=== PATIENT | female | born 1980 | race Caucasian/White ===

== ENCOUNTER → 2020-04-16 | Outpatient (CLI) | payer MEDICARE ==
[~2020-04-16] MED LIST: AURYXIA210 MG PO; BASAGLAR K100 UNIT/1 SQ; BUMETANIDE2 MG PO; CARDURA4 MG PO; CLOPIDOGREL75 MG PO; COLACE 100MG C100 MG PO; COZAAR100 MG PO; ELIQUIS 2.5 MG2.5 MG PO; ELIQUIS5 MG PO; ENDOCET 5-3251 EACH PO; GABAPENTIN300 MG PO; HYDRALAZINE HC100 MG PO; K-DUR TAB 20 M20 MEQ PO; LIPITOR40 MG PO; NEURONTIN100 MG PO; NORCO 5-325 TA1 EACH PO; NORCO 7.5-3251 EACH PO; NORVASC5 MG PO; NOVOLOG FL100 UNIT/1 SQ; PERCOCET 5-3251 EACH PO; PHENERGAN 12.12.5 M1 PO; PHENERGAN 12.12.5 MG PR; PROTONIX 40 MG40 M1 PO; RENVELA800 MG PO; TOPROL XL100 MG PO; XARELTO15 MG PO; ZYVOX600 MG PO
== END ==
LOC: WCC 13:30
PROC: 0KBV0ZZ Excision of Right Foot Muscle, Open Approach (ICD-10-PCS; principal; 2020-04-16)
DX: E10.621 Type 1 diabetes mellitus with foot ulcer (principal); L97.515 Non-pressure chronic ulcer of other part of right foot with muscle involvement without evidence of necrosis; I82.403 Acute embolism and thrombosis of unspecified deep veins of lower extremity, bilateral; E10.22 Type 1 diabetes mellitus with diabetic chronic kidney disease; R60.1 Generalized edema; N18.9 Chronic kidney disease, unspecified; Z99.2 Dependence on renal dialysis; Z79.4 Long term (current) use of insulin
CPT/HCPCS: 87070; 87205

== ENCOUNTER 2020-04-20 19:46 | Emergency (ER) | payer MEDICARE, MEDICAID, OTHER ==
[~2020-04-20 19:46] MED LIST changes: -COLACE 100MG C100 MG PO; -ELIQUIS 2.5 MG2.5 MG PO; -ELIQUIS5 MG PO; -GABAPENTIN300 MG PO; -NEURONTIN100 MG PO; -PERCOCET 5-3251 EACH PO; -ZYVOX600 MG PO
[2020-04-20 20:55] LABS: HEMOGLOBIN 9.7 gm/dl (12.3-15.3); WHITE BLOOD COUNT 8.8 K/UL (4.5-11.0)
[2020-04-20 21:01] LABS: RED BLOOD COUNT 3.18 M/UL (4.00-5.10)
[2020-04-21] MEDS ORDERED: ELIQUIS 2.5 MG2.5 MG PO (00:46)
[2020-04-21] MEDS ORDERED: PERCOCET 5-3251 EACH PO (00:46)
== END 2020-04-21 01:00 | disposition home or self-care (01) ==
LOC: ER1 19:46
PROVIDERS: Emergency Medicine
DX: Z53.8 Procedure and treatment not carried out for other reasons (principal)
CPT/HCPCS: 73700; 80053; 82550; 82553; 83605; 83735; 85025; 93926; 99284

== ENCOUNTER 2020-04-23 10:09 | Inpatient (IN) | payer MEDICARE ==
[~2020-04-23] VITALS: Ht 162.6 cm; Wt 77.1 kg
[~2020-04-23 10:09] MED LIST changes: -COLACE 100MG C100 MG PO; -ELIQUIS5 MG PO; -GABAPENTIN300 MG PO; -NEURONTIN100 MG PO; -ZYVOX600 MG PO
[2020-04-23 14:42] LABS: HEMOGLOBIN 9.8 gm/dl (12.3-15.3); RED BLOOD COUNT 3.21 M/UL (4.00-5.10)
[2020-04-23 14:43] LABS: WHITE BLOOD COUNT 11.4 K/UL (4.5-11.0)
[2020-04-23] MEDS ORDERED: NEURONTIN100 MG PO (17:00)
[2020-04-24 06:15] LABS: HEMOGLOBIN 8.5 gm/dl (12.3-15.3); RED BLOOD COUNT 2.79 M/UL (4.00-5.10); WHITE BLOOD COUNT 7.3 K/UL (4.5-11.0)
[2020-04-25 07:58] LABS: HEMOGLOBIN 8.4 gm/dl (12.3-15.3); RED BLOOD COUNT 2.78 M/UL (4.00-5.10); WHITE BLOOD COUNT 9.1 K/UL (4.5-11.0)
[2020-04-25] MEDS ORDERED: NORCO 7.5-3251 EACH PO (09:17)
[2020-04-25] MEDS ORDERED: GABAPENTIN300 MG PO (09:17)
[2020-04-25] MEDS ORDERED: COLACE 100MG C100 MG PO (09:17)
[2020-04-25] MEDS ORDERED: ELIQUIS5 MG PO (09:19)
[2020-04-25] MEDS ORDERED: ZYVOX600 MG PO (09:34)
== END 2020-04-25 20:15 | disposition home health service (06) | DRG 270 ==
LOC: CCU 10:09
PROVIDERS: Internal Medicine Nephrology; Physician Assistant Medical; Surgery; ADMIT Internal Medicine
PROC: 5A1D70Z Performance of Urinary Filtration, Intermittent, Less than 6 Hours Per Day (ICD-10-PCS; 2020-04-23)
PROC: 047L3Z1 Dilation of Left Femoral Artery using Drug-Coated Balloon, Percutaneous Approach (ICD-10-PCS; principal; 2020-04-23 18:32)
PROC: 047N3Z1 Dilation of Left Popliteal Artery using Drug-Coated Balloon, Percutaneous Approach (ICD-10-PCS; principal; 2020-04-23 18:32)
PROC: 04CN3ZZ Extirpation of Matter from Left Popliteal Artery, Percutaneous Approach (ICD-10-PCS; principal; 2020-04-23 18:32)
PROC: 04CL3ZZ Extirpation of Matter from Left Femoral Artery, Percutaneous Approach (ICD-10-PCS; principal; 2020-04-23 18:32)
PROC: B41DYZZ Fluoroscopy of Aorta and Bilateral Lower Extremity Arteries using Other Contrast (ICD-10-PCS; principal; 2020-04-23 18:32)
PROC: 5A1D70Z Performance of Urinary Filtration, Intermittent, Less than 6 Hours Per Day (ICD-10-PCS; 2020-04-25)
DX: I74.3 Embolism and thrombosis of arteries of the lower extremities (principal); N18.6 End stage renal disease; I12.0 Hypertensive chronic kidney disease with stage 5 chronic kidney disease or end stage renal disease; I72.8 Aneurysm of other specified arteries; E10.621 Type 1 diabetes mellitus with foot ulcer; E10.22 Type 1 diabetes mellitus with diabetic chronic kidney disease; Z87.891 Personal history of nicotine dependence; Z88.1 Allergy status to other antibiotic agents; Z99.2 Dependence on renal dialysis; D63.1 Anemia in chronic kidney disease; Z79.4 Long term (current) use of insulin; Z82.3 Family history of stroke; Z84.1 Family history of disorders of kidney and ureter; Z20.828 Contact with and (suspected) exposure to other viral communicable diseases; E10.21 Type 1 diabetes mellitus with diabetic nephropathy; Z79.899 Other long term (current) drug therapy; Z79.01 Long term (current) use of anticoagulants
CPT/HCPCS: 36415; 71045; 73700; 76000; 80048; 80053; 81001; 82550; 82553; 82962; 83036; 83605; 83735; 83880; 84443; 84703; 85007; 85018; 85025; 85027; 85610; 85730; 86850; 86900; 86901; 87040; 87086; 87635; 90935; 93005; 93926; 94760; 97162; 97530-GP-CQ; 99284; C1714; C1725; C1757; C1769; C1887; C2623; J1580; J1644; J2001; J2270; J2370; J2405; J2543; J2704; J2710; J2720; J2765; J3010; J7030; J7040; J7050; J7120; Q9962

== ENCOUNTER → 2020-04-23 | Outpatient (CLI) | payer MEDICARE, MEDICAID, OTHER ==
[~2020-04-23] MED LIST changes: +COLACE 100MG C100 MG PO; +ELIQUIS 2.5 MG2.5 MG PO; +ELIQUIS5 MG PO; +GABAPENTIN300 MG PO; +NEURONTIN100 MG PO; +PERCOCET 5-3251 EACH PO; +ZYVOX600 MG PO
== END ==
LOC: WCC 09:00
PROC: 0KBV0ZZ Excision of Right Foot Muscle, Open Approach (ICD-10-PCS; principal; 2020-04-23)
DX: E11.621 Type 2 diabetes mellitus with foot ulcer (principal); L97.515 Non-pressure chronic ulcer of other part of right foot with muscle involvement without evidence of necrosis; Z79.899 Other long term (current) drug therapy

== ENCOUNTER → 2020-04-30 | Outpatient (CLI) | payer MEDICARE, OTHER ==
[~2020-04-30] MED LIST changes: +COLACE 100MG C100 MG PO; +ELIQUIS5 MG PO; +GABAPENTIN300 MG PO; +NEURONTIN100 MG PO; +ZYVOX600 MG PO
== END ==
LOC: WCC 09:26
PROC: 0KBV0ZZ Excision of Right Foot Muscle, Open Approach (ICD-10-PCS; principal; 2020-04-30)
DX: E10.621 Type 1 diabetes mellitus with foot ulcer (principal); L97.515 Non-pressure chronic ulcer of other part of right foot with muscle involvement without evidence of necrosis; I82.403 Acute embolism and thrombosis of unspecified deep veins of lower extremity, bilateral; N18.9 Chronic kidney disease, unspecified; E10.22 Type 1 diabetes mellitus with diabetic chronic kidney disease; Z99.2 Dependence on renal dialysis; R60.1 Generalized edema; Z79.4 Long term (current) use of insulin; Z79.899 Other long term (current) drug therapy

== ENCOUNTER 2020-05-01 06:46 | Day surgery (SDC) | payer MEDICARE, OTHER ==
[~2020-05-01] VITALS: Ht 162.6 cm; Wt 77.1 kg
[2020-05-01 07:31] LABS: HEMOGLOBIN 8.6 gm/dl (12.3-15.3); RED BLOOD COUNT 2.99 M/UL (4.00-5.10); WHITE BLOOD COUNT 10.1 K/UL (4.5-11.0)
== END 2020-05-01 20:50 | disposition home or self-care (01) ==
LOC: OR 06:46 → M/S 15:36 → OR 20:50
PROVIDERS: Surgery
DX: E10.51 Type 1 diabetes mellitus with diabetic peripheral angiopathy without gangrene (principal); E10.621 Type 1 diabetes mellitus with foot ulcer; L97.516 Non-pressure chronic ulcer of other part of right foot with bone involvement without evidence of necrosis; I70.235 Atherosclerosis of native arteries of right leg with ulceration of other part of foot; E10.22 Type 1 diabetes mellitus with diabetic chronic kidney disease; N18.9 Chronic kidney disease, unspecified; Z99.2 Dependence on renal dialysis; Z79.01 Long term (current) use of anticoagulants; Z79.899 Other long term (current) drug therapy; Z79.52 Long term (current) use of systemic steroids; Z86.718 Personal history of other venous thrombosis and embolism
CPT/HCPCS: 36415; 76000; 80053; 82962; 85025; 85610; 85730; 86850; 86900; 86901; 87635; 93005; C1714; C1725; C1769; C1887; C2623; J0690; J1580; J1644; J2001; J2250; J2405; J2704; J2710; J2720; J3010; J7030; J7040; J7050; J7120; Q4133; Q9962

== ENCOUNTER → 2020-05-07 | Outpatient (CLI) | payer MEDICARE, OTHER | LOC: WCC 09:30 | PROC: 0JBQ0ZZ Excision of Right Foot Subcutaneous Tissue and Fascia, Open Approach (ICD-10-PCS; principal; 2020-05-07) | DX: E10.621 Type 1 diabetes mellitus with foot ulcer (principal); L97.516 Non-pressure chronic ulcer of other part of right foot with bone involvement without evidence of necrosis; I82.403 Acute embolism and thrombosis of unspecified deep veins of lower extremity, bilateral; E10.22 Type 1 diabetes mellitus with diabetic chronic kidney disease; N18.9 Chronic kidney disease, unspecified; R60.1 Generalized edema; Z99.2 Dependence on renal dialysis; Z79.4 Long term (current) use of insulin ==

== ENCOUNTER → 2020-05-14 | Outpatient (CLI) | payer MEDICARE, OTHER | LOC: WCC 09:16 | DX: E10.621 Type 1 diabetes mellitus with foot ulcer (principal); L97.516 Non-pressure chronic ulcer of other part of right foot with bone involvement without evidence of necrosis; I82.403 Acute embolism and thrombosis of unspecified deep veins of lower extremity, bilateral; E10.22 Type 1 diabetes mellitus with diabetic chronic kidney disease; N18.9 Chronic kidney disease, unspecified; E10.40 Type 1 diabetes mellitus with diabetic neuropathy, unspecified; Z99.2 Dependence on renal dialysis; Z79.4 Long term (current) use of insulin | CPT/HCPCS: G0463 ==

== ENCOUNTER 2020-05-20 02:41 | Emergency (ER) | payer MEDICARE, OTHER | END 2020-05-20 04:27 | disposition home or self-care (01) | LOC: ER1 02:41 | DX: T85.611A Breakdown (mechanical) of intraperitoneal dialysis catheter, initial encounter (principal); E10.9 Type 1 diabetes mellitus without complications; I10 Essential (primary) hypertension; Y82.8 Other medical devices associated with adverse incidents | CPT/HCPCS: 99283 ==

== ENCOUNTER → 2020-05-21 | Outpatient (CLI) | payer MEDICARE, OTHER | LOC: WCC 09:17 | DX: E10.621 Type 1 diabetes mellitus with foot ulcer (principal); L97.516 Non-pressure chronic ulcer of other part of right foot with bone involvement without evidence of necrosis; I82.403 Acute embolism and thrombosis of unspecified deep veins of lower extremity, bilateral; E11.22 Type 2 diabetes mellitus with diabetic chronic kidney disease; N18.9 Chronic kidney disease, unspecified; Z99.2 Dependence on renal dialysis; Z79.4 Long term (current) use of insulin; R60.1 Generalized edema; E10.40 Type 1 diabetes mellitus with diabetic neuropathy, unspecified | CPT/HCPCS: 97597 ==

== ENCOUNTER → 2020-05-28 | Outpatient (CLI) | payer MEDICARE, OTHER | LOC: WCC 09:13 | PROC: 0KBV0ZZ Excision of Right Foot Muscle, Open Approach (ICD-10-PCS; principal; 2020-05-28) | DX: E10.621 Type 1 diabetes mellitus with foot ulcer (principal); L97.514 Non-pressure chronic ulcer of other part of right foot with necrosis of bone; E10.52 Type 1 diabetes mellitus with diabetic peripheral angiopathy with gangrene; I96 Gangrene, not elsewhere classified; I12.0 Hypertensive chronic kidney disease with stage 5 chronic kidney disease or end stage renal disease; E10.22 Type 1 diabetes mellitus with diabetic chronic kidney disease; N18.6 End stage renal disease; E10.40 Type 1 diabetes mellitus with diabetic neuropathy, unspecified; I82.403 Acute embolism and thrombosis of unspecified deep veins of lower extremity, bilateral; E10.36 Type 1 diabetes mellitus with diabetic cataract; F41.8 Other specified anxiety disorders; H26.9 Unspecified cataract; Z99.2 Dependence on renal dialysis; Z79.4 Long term (current) use of insulin; Z79.891 Long term (current) use of opiate analgesic; Z79.02 Long term (current) use of antithrombotics/antiplatelets; Z79.2 Long term (current) use of antibiotics; Z79.899 Other long term (current) drug therapy ==

== ENCOUNTER → 2020-06-04 | Outpatient (CLI) | payer MEDICARE, OTHER | LOC: WCC 09:19 | PROC: 0KBV0ZZ Excision of Right Foot Muscle, Open Approach (ICD-10-PCS; principal; 2020-06-04) | DX: E10.621 Type 1 diabetes mellitus with foot ulcer (principal); L97.514 Non-pressure chronic ulcer of other part of right foot with necrosis of bone; E10.52 Type 1 diabetes mellitus with diabetic peripheral angiopathy with gangrene; E10.36 Type 1 diabetes mellitus with diabetic cataract; H26.9 Unspecified cataract; I12.0 Hypertensive chronic kidney disease with stage 5 chronic kidney disease or end stage renal disease; E10.22 Type 1 diabetes mellitus with diabetic chronic kidney disease; N18.6 End stage renal disease; F41.8 Other specified anxiety disorders; Z86.718 Personal history of other venous thrombosis and embolism; Z79.02 Long term (current) use of antithrombotics/antiplatelets; Z79.4 Long term (current) use of insulin; Z79.891 Long term (current) use of opiate analgesic; Z79.2 Long term (current) use of antibiotics; Z79.899 Other long term (current) drug therapy ==

== ENCOUNTER → 2020-06-18 | Outpatient (CLI) | payer MEDICARE, OTHER | LOC: WCC 09:15 | PROC: 0KBV0ZZ Excision of Right Foot Muscle, Open Approach (ICD-10-PCS; principal; 2020-06-18) | DX: E10.621 Type 1 diabetes mellitus with foot ulcer (principal); L97.513 Non-pressure chronic ulcer of other part of right foot with necrosis of muscle; L97.525 Non-pressure chronic ulcer of other part of left foot with muscle involvement without evidence of necrosis; E10.52 Type 1 diabetes mellitus with diabetic peripheral angiopathy with gangrene; I96 Gangrene, not elsewhere classified; E10.40 Type 1 diabetes mellitus with diabetic neuropathy, unspecified; E10.36 Type 1 diabetes mellitus with diabetic cataract; H26.9 Unspecified cataract; I82.403 Acute embolism and thrombosis of unspecified deep veins of lower extremity, bilateral; I12.0 Hypertensive chronic kidney disease with stage 5 chronic kidney disease or end stage renal disease; E10.22 Type 1 diabetes mellitus with diabetic chronic kidney disease; N18.6 End stage renal disease; F41.8 Other specified anxiety disorders; Z99.2 Dependence on renal dialysis; Z79.4 Long term (current) use of insulin; Z79.891 Long term (current) use of opiate analgesic; Z79.02 Long term (current) use of antithrombotics/antiplatelets; Z79.2 Long term (current) use of antibiotics; Z79.899 Other long term (current) drug therapy ==

== ENCOUNTER → 2020-06-29 | Outpatient (CLI) | payer MEDICARE, OTHER | LOC: WCC 09:19 | PROC: 0QBQ0ZZ Excision of Right Toe Phalanx, Open Approach (ICD-10-PCS; principal; 2020-06-29) | DX: E10.621 Type 1 diabetes mellitus with foot ulcer (principal); L97.514 Non-pressure chronic ulcer of other part of right foot with necrosis of bone; E10.52 Type 1 diabetes mellitus with diabetic peripheral angiopathy with gangrene; I96 Gangrene, not elsewhere classified; I82.403 Acute embolism and thrombosis of unspecified deep veins of lower extremity, bilateral; E10.40 Type 1 diabetes mellitus with diabetic neuropathy, unspecified; E10.36 Type 1 diabetes mellitus with diabetic cataract; H26.9 Unspecified cataract; I12.0 Hypertensive chronic kidney disease with stage 5 chronic kidney disease or end stage renal disease; E10.22 Type 1 diabetes mellitus with diabetic chronic kidney disease; N18.6 End stage renal disease; F41.8 Other specified anxiety disorders; Z79.2 Long term (current) use of antibiotics; Z79.4 Long term (current) use of insulin; Z79.02 Long term (current) use of antithrombotics/antiplatelets; Z79.899 Other long term (current) drug therapy; Z99.2 Dependence on renal dialysis ==

== ENCOUNTER → 2020-07-09 | Outpatient (CLI) | payer MEDICARE, OTHER | LOC: WCC 09:08 | PROC: 0KBV0ZZ Excision of Right Foot Muscle, Open Approach (ICD-10-PCS; principal; 2020-07-09) | DX: E10.621 Type 1 diabetes mellitus with foot ulcer (principal); L97.513 Non-pressure chronic ulcer of other part of right foot with necrosis of muscle; E10.52 Type 1 diabetes mellitus with diabetic peripheral angiopathy with gangrene; I96 Gangrene, not elsewhere classified; I12.0 Hypertensive chronic kidney disease with stage 5 chronic kidney disease or end stage renal disease; E10.22 Type 1 diabetes mellitus with diabetic chronic kidney disease; N18.6 End stage renal disease; F41.8 Other specified anxiety disorders; E10.40 Type 1 diabetes mellitus with diabetic neuropathy, unspecified; E10.36 Type 1 diabetes mellitus with diabetic cataract; H26.9 Unspecified cataract; Z79.02 Long term (current) use of antithrombotics/antiplatelets; Z79.4 Long term (current) use of insulin; Z79.891 Long term (current) use of opiate analgesic; Z79.2 Long term (current) use of antibiotics; Z79.899 Other long term (current) drug therapy; Z99.2 Dependence on renal dialysis; Z86.718 Personal history of other venous thrombosis and embolism ==

== ENCOUNTER → 2020-07-20 | Outpatient (CLI) | payer MEDICARE | LOC: WCC 09:25 | PROC: 0KBV0ZZ Excision of Right Foot Muscle, Open Approach (ICD-10-PCS; principal; 2020-07-20) | DX: E10.621 Type 1 diabetes mellitus with foot ulcer (principal); L97.513 Non-pressure chronic ulcer of other part of right foot with necrosis of muscle; E10.52 Type 1 diabetes mellitus with diabetic peripheral angiopathy with gangrene; I96 Gangrene, not elsewhere classified; E10.40 Type 1 diabetes mellitus with diabetic neuropathy, unspecified; I12.0 Hypertensive chronic kidney disease with stage 5 chronic kidney disease or end stage renal disease; E10.22 Type 1 diabetes mellitus with diabetic chronic kidney disease; N18.6 End stage renal disease; E10.36 Type 1 diabetes mellitus with diabetic cataract; H26.9 Unspecified cataract; I82.403 Acute embolism and thrombosis of unspecified deep veins of lower extremity, bilateral; Z79.4 Long term (current) use of insulin; Z79.2 Long term (current) use of antibiotics; Z79.899 Other long term (current) drug therapy; Z99.2 Dependence on renal dialysis ==

== ENCOUNTER → 2020-08-10 | Outpatient (CLI) | payer MEDICARE | LOC: WCC 09:30 | PROC: 0KBV0ZZ Excision of Right Foot Muscle, Open Approach (ICD-10-PCS; principal; 2020-08-10) | DX: E10.621 Type 1 diabetes mellitus with foot ulcer (principal); L97.513 Non-pressure chronic ulcer of other part of right foot with necrosis of muscle; L97.525 Non-pressure chronic ulcer of other part of left foot with muscle involvement without evidence of necrosis; E10.52 Type 1 diabetes mellitus with diabetic peripheral angiopathy with gangrene; E10.36 Type 1 diabetes mellitus with diabetic cataract; H26.9 Unspecified cataract; I96 Gangrene, not elsewhere classified; I82.403 Acute embolism and thrombosis of unspecified deep veins of lower extremity, bilateral; I12.0 Hypertensive chronic kidney disease with stage 5 chronic kidney disease or end stage renal disease; E10.22 Type 1 diabetes mellitus with diabetic chronic kidney disease; N18.6 End stage renal disease; E10.40 Type 1 diabetes mellitus with diabetic neuropathy, unspecified; Z99.2 Dependence on renal dialysis; Z79.4 Long term (current) use of insulin; Z79.891 Long term (current) use of opiate analgesic; Z79.02 Long term (current) use of antithrombotics/antiplatelets; Z79.2 Long term (current) use of antibiotics; Z79.899 Other long term (current) drug therapy ==

== ENCOUNTER → 2020-08-20 | Outpatient (CLI) | payer MEDICARE | LOC: WCC 09:30 | PROC: 0KBV0ZZ Excision of Right Foot Muscle, Open Approach (ICD-10-PCS; principal; 2020-08-20) | DX: E10.621 Type 1 diabetes mellitus with foot ulcer (principal); L97.514 Non-pressure chronic ulcer of other part of right foot with necrosis of bone; E10.52 Type 1 diabetes mellitus with diabetic peripheral angiopathy with gangrene; I96 Gangrene, not elsewhere classified; I82.403 Acute embolism and thrombosis of unspecified deep veins of lower extremity, bilateral; E10.40 Type 1 diabetes mellitus with diabetic neuropathy, unspecified; E10.36 Type 1 diabetes mellitus with diabetic cataract; H26.9 Unspecified cataract; I12.0 Hypertensive chronic kidney disease with stage 5 chronic kidney disease or end stage renal disease; E10.22 Type 1 diabetes mellitus with diabetic chronic kidney disease; N18.6 End stage renal disease; Z79.4 Long term (current) use of insulin; Z79.891 Long term (current) use of opiate analgesic; Z79.02 Long term (current) use of antithrombotics/antiplatelets; Z79.2 Long term (current) use of antibiotics; Z79.899 Other long term (current) drug therapy; Z99.2 Dependence on renal dialysis ==

== ENCOUNTER → 2020-08-31 | Outpatient (CLI) | payer MEDICARE | LOC: WCC 09:30 | PROC: 0JBQ0ZZ Excision of Right Foot Subcutaneous Tissue and Fascia, Open Approach (ICD-10-PCS; principal; 2020-08-31) | DX: E10.621 Type 1 diabetes mellitus with foot ulcer (principal); L97.512 Non-pressure chronic ulcer of other part of right foot with fat layer exposed; E10.52 Type 1 diabetes mellitus with diabetic peripheral angiopathy with gangrene; I96 Gangrene, not elsewhere classified; E10.36 Type 1 diabetes mellitus with diabetic cataract; H26.9 Unspecified cataract; E10.22 Type 1 diabetes mellitus with diabetic chronic kidney disease; N18.6 End stage renal disease; E10.40 Type 1 diabetes mellitus with diabetic neuropathy, unspecified; I82.403 Acute embolism and thrombosis of unspecified deep veins of lower extremity, bilateral; Z79.4 Long term (current) use of insulin; Z79.02 Long term (current) use of antithrombotics/antiplatelets; Z79.2 Long term (current) use of antibiotics; Z79.891 Long term (current) use of opiate analgesic; Z79.899 Other long term (current) drug therapy; Z99.2 Dependence on renal dialysis ==

== ENCOUNTER → 2020-09-11 | Outpatient (CLI) | payer MEDICARE | LOC: WCC 13:58 | PROC: 0JBQ0ZZ Excision of Right Foot Subcutaneous Tissue and Fascia, Open Approach (ICD-10-PCS; principal; 2020-09-11) | DX: E10.621 Type 1 diabetes mellitus with foot ulcer (principal); L97.512 Non-pressure chronic ulcer of other part of right foot with fat layer exposed; E10.52 Type 1 diabetes mellitus with diabetic peripheral angiopathy with gangrene; I96 Gangrene, not elsewhere classified; E10.40 Type 1 diabetes mellitus with diabetic neuropathy, unspecified; I12.0 Hypertensive chronic kidney disease with stage 5 chronic kidney disease or end stage renal disease; E10.22 Type 1 diabetes mellitus with diabetic chronic kidney disease; N18.6 End stage renal disease; E10.36 Type 1 diabetes mellitus with diabetic cataract; H26.9 Unspecified cataract; I82.403 Acute embolism and thrombosis of unspecified deep veins of lower extremity, bilateral; Z99.2 Dependence on renal dialysis; Z79.4 Long term (current) use of insulin; Z79.2 Long term (current) use of antibiotics; Z79.02 Long term (current) use of antithrombotics/antiplatelets; Z79.891 Long term (current) use of opiate analgesic; Z79.899 Other long term (current) drug therapy ==

== ENCOUNTER → 2020-09-19 | Outpatient (CLI) | payer MEDICARE | LOC: WCC 11:30 | DX: E10.621 Type 1 diabetes mellitus with foot ulcer (principal); L97.516 Non-pressure chronic ulcer of other part of right foot with bone involvement without evidence of necrosis; I82.403 Acute embolism and thrombosis of unspecified deep veins of lower extremity, bilateral; E10.22 Type 1 diabetes mellitus with diabetic chronic kidney disease; L97.525 Non-pressure chronic ulcer of other part of left foot with muscle involvement without evidence of necrosis; R60.1 Generalized edema; N18.9 Chronic kidney disease, unspecified; Z99.2 Dependence on renal dialysis; Z79.4 Long term (current) use of insulin | CPT/HCPCS: G0463 ==

== ENCOUNTER → 2020-09-25 | Outpatient (CLI) | payer MEDICARE | LOC: WCC 14:15 | PROC: 0JBQ0ZZ Excision of Right Foot Subcutaneous Tissue and Fascia, Open Approach (ICD-10-PCS; principal; 2020-09-25) | DX: E10.621 Type 1 diabetes mellitus with foot ulcer (principal); L97.512 Non-pressure chronic ulcer of other part of right foot with fat layer exposed; E10.52 Type 1 diabetes mellitus with diabetic peripheral angiopathy with gangrene; I96 Gangrene, not elsewhere classified; E10.40 Type 1 diabetes mellitus with diabetic neuropathy, unspecified; E10.36 Type 1 diabetes mellitus with diabetic cataract; H26.9 Unspecified cataract; I12.0 Hypertensive chronic kidney disease with stage 5 chronic kidney disease or end stage renal disease; E10.22 Type 1 diabetes mellitus with diabetic chronic kidney disease; N18.6 End stage renal disease; I82.403 Acute embolism and thrombosis of unspecified deep veins of lower extremity, bilateral; Z79.4 Long term (current) use of insulin; Z79.891 Long term (current) use of opiate analgesic; Z79.02 Long term (current) use of antithrombotics/antiplatelets; Z79.899 Other long term (current) drug therapy; Z99.2 Dependence on renal dialysis ==

== ENCOUNTER → 2020-10-02 | Outpatient (CLI) | payer MEDICARE | LOC: WCC 11:15 | DX: E10.621 Type 1 diabetes mellitus with foot ulcer (principal); L97.516 Non-pressure chronic ulcer of other part of right foot with bone involvement without evidence of necrosis; I82.403 Acute embolism and thrombosis of unspecified deep veins of lower extremity, bilateral; E10.22 Type 1 diabetes mellitus with diabetic chronic kidney disease; N18.9 Chronic kidney disease, unspecified; E10.40 Type 1 diabetes mellitus with diabetic neuropathy, unspecified; L97.525 Non-pressure chronic ulcer of other part of left foot with muscle involvement without evidence of necrosis; Z99.2 Dependence on renal dialysis; Z79.4 Long term (current) use of insulin | CPT/HCPCS: G0463 ==

== ENCOUNTER → 2020-10-19 | Outpatient (CLI) | payer MEDICARE | LOC: WCC 09:00 | DX: E10.621 Type 1 diabetes mellitus with foot ulcer (principal); L97.516 Non-pressure chronic ulcer of other part of right foot with bone involvement without evidence of necrosis; L97.525 Non-pressure chronic ulcer of other part of left foot with muscle involvement without evidence of necrosis; E10.22 Type 1 diabetes mellitus with diabetic chronic kidney disease; I82.403 Acute embolism and thrombosis of unspecified deep veins of lower extremity, bilateral; Z79.899 Other long term (current) drug therapy; Z79.4 Long term (current) use of insulin; Z99.2 Dependence on renal dialysis ==

== ENCOUNTER → 2020-10-25 | Outpatient (CLI) | payer MEDICARE | LOC: WCC 13:30 | PROC: 0JBQ0ZZ Excision of Right Foot Subcutaneous Tissue and Fascia, Open Approach (ICD-10-PCS; principal; 2020-10-25) | DX: E10.621 Type 1 diabetes mellitus with foot ulcer (principal); L97.512 Non-pressure chronic ulcer of other part of right foot with fat layer exposed; E10.52 Type 1 diabetes mellitus with diabetic peripheral angiopathy with gangrene; I96 Gangrene, not elsewhere classified; I12.0 Hypertensive chronic kidney disease with stage 5 chronic kidney disease or end stage renal disease; E10.22 Type 1 diabetes mellitus with diabetic chronic kidney disease; N18.6 End stage renal disease; E10.40 Type 1 diabetes mellitus with diabetic neuropathy, unspecified; I82.403 Acute embolism and thrombosis of unspecified deep veins of lower extremity, bilateral; E10.36 Type 1 diabetes mellitus with diabetic cataract; H26.9 Unspecified cataract; Z99.2 Dependence on renal dialysis; Z79.02 Long term (current) use of antithrombotics/antiplatelets; Z79.891 Long term (current) use of opiate analgesic; Z79.899 Other long term (current) drug therapy ==

== ENCOUNTER → 2020-11-08 | Outpatient (CLI) | payer MEDICARE | LOC: WCC 13:57 | PROC: 0JBQ0ZZ Excision of Right Foot Subcutaneous Tissue and Fascia, Open Approach (ICD-10-PCS; principal; 2020-11-08) | DX: E10.621 Type 1 diabetes mellitus with foot ulcer (principal); L97.512 Non-pressure chronic ulcer of other part of right foot with fat layer exposed; E10.52 Type 1 diabetes mellitus with diabetic peripheral angiopathy with gangrene; I96 Gangrene, not elsewhere classified; I82.403 Acute embolism and thrombosis of unspecified deep veins of lower extremity, bilateral; I12.0 Hypertensive chronic kidney disease with stage 5 chronic kidney disease or end stage renal disease; E10.22 Type 1 diabetes mellitus with diabetic chronic kidney disease; N18.6 End stage renal disease; E10.40 Type 1 diabetes mellitus with diabetic neuropathy, unspecified; E10.36 Type 1 diabetes mellitus with diabetic cataract; H26.9 Unspecified cataract; Z99.2 Dependence on renal dialysis; Z79.4 Long term (current) use of insulin; Z79.02 Long term (current) use of antithrombotics/antiplatelets; Z79.2 Long term (current) use of antibiotics; Z79.891 Long term (current) use of opiate analgesic; Z79.899 Other long term (current) drug therapy | CPT/HCPCS: 87070; 87077; 87186; 87205 ==

== ENCOUNTER → 2020-11-13 | Outpatient (CLI) | payer MEDICARE | LOC: RAD 13:18 | DX: E10.621 Type 1 diabetes mellitus with foot ulcer (principal); L97.516 Non-pressure chronic ulcer of other part of right foot with bone involvement without evidence of necrosis; E10.22 Type 1 diabetes mellitus with diabetic chronic kidney disease; N18.9 Chronic kidney disease, unspecified | CPT/HCPCS: 73630 ==

== ENCOUNTER → 2020-11-22 | Outpatient (CLI) | payer MEDICARE | LOC: WCC 13:27 | DX: E10.621 Type 1 diabetes mellitus with foot ulcer (principal); L97.516 Non-pressure chronic ulcer of other part of right foot with bone involvement without evidence of necrosis; I82.403 Acute embolism and thrombosis of unspecified deep veins of lower extremity, bilateral; E10.22 Type 1 diabetes mellitus with diabetic chronic kidney disease; N18.9 Chronic kidney disease, unspecified; E11.40 Type 2 diabetes mellitus with diabetic neuropathy, unspecified; L97.525 Non-pressure chronic ulcer of other part of left foot with muscle involvement without evidence of necrosis; R60.1 Generalized edema; Z99.2 Dependence on renal dialysis; Z79.4 Long term (current) use of insulin | CPT/HCPCS: G0463 ==

== ENCOUNTER 2021-03-27 09:44 | Inpatient (IN) | payer MEDICARE ==
[~2021-03-27] VITALS: Ht 160 cm; Wt 90.7 kg
[~2021-03-27 09:44] MED LIST changes: -AURYXIA210 MG PO; -BASAGLAR K100 UNIT/1 SQ; -NORVASC5 MG PO; -NOVOLOG FL100 UNIT/1 SQ; -TOPROL XL100 MG PO
[2021-03-27 11:57] LABS: HEMOGLOBIN 9.7 gm/dl (12.3-15.3); RED BLOOD COUNT 3.38 M/UL (4.00-5.10); WHITE BLOOD COUNT 11.5 K/UL (4.5-11.0)
[2021-03-27] MEDS ORDERED: METOLAZONE10 MG PO (13:56)
[2021-03-27] MEDS ORDERED: RENVELA800 MG PO (13:56)
[2021-03-27] MEDS ORDERED: HYDROCODON-ACE1 EAC2 PO (13:57)
[2021-03-27] MEDS ORDERED: PREGABALIN100 MG PO (13:57)
[2021-03-27] MEDS ORDERED: NORVASC10 MG PO (23:23)
[2021-03-27] MEDS ORDERED: BASAGLAR K100 UNIT/1 SQ (23:24)
[2021-03-27] MEDS ORDERED: NOVOLOG FL100 UNIT/1 INJ (23:25)
[2021-03-27] MEDS ORDERED: AURYXIA210 MG PO (23:31)
[2021-03-27] MEDS ORDERED: METOPROLOL TAR100 MG PO (23:32)
[2021-03-28 08:27] LABS: HEMOGLOBIN 8.3 gm/dl (12.3-15.3)
[2021-03-28 08:31] LABS: RED BLOOD COUNT 2.89 M/UL (4.00-5.10); WHITE BLOOD COUNT 8.5 K/UL (4.5-11.0)
[2021-03-29 07:27] LABS: HEMOGLOBIN 8.6 gm/dl (12.3-15.3); RED BLOOD COUNT 3.02 M/UL (4.00-5.10); WHITE BLOOD COUNT 8.5 K/UL (4.5-11.0)
--- NOTE | 2021-03-29 12:54 | NUR ---
REPORT GIVEN TO BHARAT WALTERS, PT LEFT AT THIS TIME VIA-TRANSPORT TO ROOM 4113, TELE ON
--- NOTE | 2021-03-29 16:00 | NUR ---
pt arrived to the floor, dsg change done per md order. she asked for it to be removed. states was burning. i redressed her foot with a dry dressing. she denies needs or c/o at this time.
[2021-03-30 06:00] LABS: HEMOGLOBIN 9.2 gm/dl (12.3-15.3); RED BLOOD COUNT 3.19 M/UL (4.00-5.10); WHITE BLOOD COUNT 8.1 K/UL (4.5-11.0)
--- NOTE | 2021-04-02 13:11 | NUR ---
PER OR STAFF AND PROVIDER DR DORADO PATIENT SURGERY HAS BEEN PUSHED BACK UNTIL TOMORROW 04/03/21. WILL INFORM PATIENT, ALLOW PATIENT TO EAT AND PUT IN ORDER FOR NPO AFTER MIDNIGHT TONIGHT 04/01/21. WILL CONTINUE TO MONITOR.
--- NOTE | 2021-04-04 07:31 | NUR ---
PATIENT NOTED TO HAVE A GLUCOSE READING OF 546 AMD A K OF 6.1. PROIOVDER MADE AWARE WITH NEW ORDERS GIVEN.
[2021-04-04 07:59] LABS: HEMOGLOBIN 8.6 gm/dl (12.3-15.3); RED BLOOD COUNT 3.04 M/UL (4.00-5.10); WHITE BLOOD COUNT 8.9 K/UL (4.5-11.0)
[2021-04-04 14:14] LABS: HEMATOCRIT 27.8 % (34.0-46.6)
[2021-04-05 07:18] LABS: HEMOGLOBIN 9.1 gm/dl (12.3-15.3); RED BLOOD COUNT 3.11 M/UL (4.00-5.10); WHITE BLOOD COUNT 8.4 K/UL (4.5-11.0)
--- NOTE | 2021-04-06 17:45 | NUR ---
NOTIFIED DR SHARMA OF BLOOD GLUCOSE READINGS. STATED WOULD MAKE CHANGES TO HER MEDICATIONS.
[2021-04-07 07:08] LABS: HEMOGLOBIN 9.2 gm/dl (12.3-15.3); RED BLOOD COUNT 3.19 M/UL (4.00-5.10); WHITE BLOOD COUNT 7.7 K/UL (4.5-11.0)
[2021-04-08 10:13] LABS: HEMOGLOBIN 8.8 gm/dl (12.3-15.3); RED BLOOD COUNT 3.06 M/UL (4.00-5.10); WHITE BLOOD COUNT 8.3 K/UL (4.5-11.0)
[2021-04-08] MEDS ORDERED: LANTUS INS100 UTS/M1 SQ (16:26)
[2021-04-08] MEDS ORDERED: VITAMIN B-121000 MC2 SL (16:26)
[2021-04-09 07:00] LABS: HEMOGLOBIN 8.5 gm/dl (12.3-15.3); RED BLOOD COUNT 2.99 M/UL (4.00-5.10)
[2021-04-09 08:13] LABS: WHITE BLOOD COUNT 11.3 K/UL (4.5-11.0)
[2021-04-09 14:14] LABS: HEMATOCRIT 26.9 % (34.0-46.6)
[2021-04-10 06:56] LABS: HEMOGLOBIN 7.9 gm/dl (12.3-15.3)
[2021-04-10 07:02] LABS: RED BLOOD COUNT 2.69 M/UL (4.00-5.10); WHITE BLOOD COUNT 7.4 K/UL (4.5-11.0)
[2021-04-10] MEDS ORDERED: BACTRIM DS TAB1 EACH PO (13:22)
[2021-04-10] MEDS ORDERED: PHENERGAN 12.12.5 M1 PO (13:22)
== END 2021-04-10 16:54 | disposition home or self-care (01) | DRG 622 ==
LOC: ER1 09:44 → CDU 13:27 → MED SURG 4 13:27 → CCU 20:11 → MED SURG 4 03-29 12:57
PROVIDERS: Emergency Medicine; Internal Medicine; Internal Medicine Hematology & Oncology; Physician Assistant; Physician Assistant Medical; Registered Nurse; ADMIT Internal Medicine
PROC: B24BZZZ Ultrasonography of Heart with Aorta (ICD-10-PCS; 2021-04-02)
PROC: 0JBQ0ZZ Excision of Right Foot Subcutaneous Tissue and Fascia, Open Approach (ICD-10-PCS; principal; 2021-04-03)
PROC: 0HRMXK3 Replacement of Right Foot Skin with Nonautologous Tissue Substitute, Full Thickness, External Approach (ICD-10-PCS; 2021-04-03)
PROC: 0J9R0ZZ Drainage of Left Foot Subcutaneous Tissue and Fascia, Open Approach (ICD-10-PCS; 2021-04-03)
PROC: 3E1M39Z Irrigation of Peritoneal Cavity using Dialysate, Percutaneous Approach (ICD-10-PCS; 2021-04-03)
PROC: 0H9NXZZ Drainage of Left Foot Skin, External Approach (ICD-10-PCS; 2021-04-08)
PROC: 3E00X29 Introduction of Other Anti-infective into Skin and Mucous Membranes, External Approach (ICD-10-PCS; 2021-04-08)
DX: E10.621 Type 1 diabetes mellitus with foot ulcer (principal); K66.1 Hemoperitoneum; I12.0 Hypertensive chronic kidney disease with stage 5 chronic kidney disease or end stage renal disease; Z20.822 Contact with and (suspected) exposure to COVID-19; L03.116 Cellulitis of left lower limb; L02.416 Cutaneous abscess of left lower limb; D62 Acute posthemorrhagic anemia; I31.3 Pericardial effusion (noninflammatory); N18.6 End stage renal disease; E10.22 Type 1 diabetes mellitus with diabetic chronic kidney disease; E10.649 Type 1 diabetes mellitus with hypoglycemia without coma; E87.5 Hyperkalemia; K21.9 Gastro-esophageal reflux disease without esophagitis; I07.1 Rheumatic tricuspid insufficiency; E66.9 Obesity, unspecified; E10.51 Type 1 diabetes mellitus with diabetic peripheral angiopathy without gangrene; D63.1 Anemia in chronic kidney disease; Z86.718 Personal history of other venous thrombosis and embolism; Z79.01 Long term (current) use of anticoagulants; Z99.2 Dependence on renal dialysis; Z79.4 Long term (current) use of insulin; Z98.891 History of uterine scar from previous surgery; Z83.3 Family history of diabetes mellitus; Z84.1 Family history of disorders of kidney and ureter; Z88.1 Allergy status to other antibiotic agents; Z68.36 Body mass index [BMI] 36.0-36.9, adult
CPT/HCPCS: ECHO; 36415; 73630; 73718; 80048; 80053; 81206; 81207; 81219; 81270; 82607; 82728; 82747; 82962; 83540; 83550; 83735; 83921; 85007; 85025; 85027; 85652; 86140; 87040; 87070; 87077; 87186; 87205; 90935; 90947; 93005; 93306; 93925; 94664; 94760; 96374; 97110; 97161; 97166; 99284; A6212; C1713; J0692; J1100; J1580; J2001; J2020; J2250; J2270; J2405; J2543; J2550; J2704; J2795; J3010; J7030; J7120; Q4081; Q4133; Q5105; U0002

== ENCOUNTER 2021-07-15 16:01 | Inpatient (IN) | payer MEDICARE, OTHER ==
[~2021-07-15] VITALS: Ht 162.6 cm; Wt 96.2 kg
[~2021-07-15 16:01] MED LIST changes: +AURYXIA210 MG PO; +BACTRIM DS TAB1 EACH PO; +BASAGLAR K100 UNIT/1 SQ; +LANTUS INS100 UTS/M1 SQ; +METOLAZONE10 MG PO; +METOPROLOL TAR100 MG PO; +NORVASC10 MG PO; +NOVOLOG FL100 UNIT/1 SQ; +PREGABALIN100 MG PO; +VITAMIN B-121000 MC2 SL
[2021-07-15 18:05] LABS: HEMOGLOBIN 10.6 gm/dl (12.3-15.3); RED BLOOD COUNT 3.49 M/UL (4.00-5.10)
[2021-07-15] MEDS ORDERED: CLOPIDOGREL75 MG PO (23:36)
[2021-07-15] MEDS ORDERED: ADULT LOW DOSE81 MG PO (23:37)
[2021-07-15] MEDS ORDERED: VIBRAMYCIN 100100 MG PO (23:37)
[2021-07-16 06:33] LABS: HEMOGLOBIN 9.1 gm/dl (12.3-15.3)
[2021-07-16 06:42] LABS: RED BLOOD COUNT 3.04 M/UL (4.00-5.10)
[2021-07-16] MEDS ORDERED: HYDROCODON-ACE1 EAC2 PO (13:57)
[2021-07-16] MEDS ORDERED: TYLENOL EXTRA500 MG PO (17:45)
[2021-07-17 09:24] LABS: HEMOGLOBIN 10.1 gm/dl (12.3-15.3)
[2021-07-17 09:26] LABS: RED BLOOD COUNT 3.36 M/UL (4.00-5.10); WHITE BLOOD COUNT 21.1 K/UL (4.5-11.0)
--- NOTE | 2021-07-17 17:38 | NUR ---
dsg change done by me and came in and changed dressing change orders, pt tolerated well.
--- NOTE | 2021-07-18 01:55 | NUR ---
APPROX 2325 CALLED [facility].
[2021-07-18 16:51] LABS: HEMOGLOBIN 9.4 gm/dl (12.3-15.3); RED BLOOD COUNT 3.1 M/UL (4.00-5.10); WHITE BLOOD COUNT 20.8 K/UL (4.5-11.0)
[2021-07-19 06:33] LABS: HEMOGLOBIN 9.6 gm/dl (12.3-15.3); RED BLOOD COUNT 3.2 M/UL (4.00-5.10); WHITE BLOOD COUNT 17.6 K/UL (4.5-11.0)
--- NOTE | 2021-07-19 07:25 | NUR ---
[facility] CALLED TO DR. HERNANDEZ NO NEW ORDERS GVEN AT THIS TIME.
--- NOTE | 2021-07-20 01:32 | NUR ---
2320 DR VILLEDA NOTIFIED PT LEFT WOUND DRESSING SATURATED WITH DARK RED BLOOD. SATURATED THROUGH ACEWRAPS, KURLEX, ON BED SHEETS. TAKEN RIGOBERTO WRAPS OFF, DID NOT TAKE KURLEX OFF. MD OK TO TAKE KURLEX OFF AND REWRAP DRESSING AND ELAVATE LEG. ALSO NOTIFIED MD OF PT HAVING BOLUS OF NS DUE TO LOW BP. ANOTHER RCV ORDERS FROM DR. MOORE FOR THAT. 2340 KURLEX IS REMOVED WITH HELP FROM INFORMATION TECHNOLOGY DATA ANALYST, POSTERIOR DRAIN AND INCISION IS ACTIVELY BLEEDING, LARGE BLOOD CLOTS IN KURLEX WRAP. VERY SATURATED. 2 OTHER INCISION ARE NOT BLEEDING AT THIS TIME, REWRAP WITH 2 KURLEX, 2 ACEWRAPS WITH PRESSURE APPLIED WHEN WRAPPING, ELEVATED WITH PILLOWS. PT TOLERATED WELL BUT IN PAIN. [address] VILLEDA OF ABOVE. MD STATES WILL COME AND EVALUATE PT RIGHT NOW IF NEEDED. NOTIFIED MD OF VITALS OF 2349 BP 119/72,HR 73, 02-100%. PT IS STILL RECEVING BOLUS AT THIS TIME. AGREED WITH MD WILL CONTINUE TO MONITOR PT AND IF BLEEDING CONTINUES THROUGH DRESSING AGAIN WILL CONTACT MD IMMEDIATLEY. ALSO MD STATES DONT HESITATE TO CALL AND HOLD HEPARIN AT THIS TIME. 0040 NO BLEEDING THROUGH DRESSING AT THIS TIME. PT RESTING IN BED AT THIS TIME WILL CONTINUE TO MONITOR PT.
[2021-07-20 05:47] LABS: RED BLOOD COUNT 2.97 M/UL (4.00-5.10); WHITE BLOOD COUNT 14.8 K/UL (4.5-11.0)
[2021-07-21 03:22] LABS: HEMOGLOBIN 9.2 gm/dl (12.3-15.3); RED BLOOD COUNT 3.08 M/UL (4.00-5.10); WHITE BLOOD COUNT 17.1 K/UL (4.5-11.0)
[2021-07-22 05:02] LABS: HEMOGLOBIN 8.5 gm/dl (12.3-15.3); RED BLOOD COUNT 2.85 M/UL (4.00-5.10); WHITE BLOOD COUNT 16.7 K/UL (4.5-11.0)
[2021-07-24 03:19] LABS: HEMOGLOBIN 7.9 gm/dl (12.3-15.3); RED BLOOD COUNT 2.68 M/UL (4.00-5.10); WHITE BLOOD COUNT 14.3 K/UL (4.5-11.0)
[2021-07-25 02:57] LABS: HEMOGLOBIN 7.7 gm/dl (12.3-15.3); RED BLOOD COUNT 2.66 M/UL (4.00-5.10); WHITE BLOOD COUNT 17.7 K/UL (4.5-11.0)
[2021-07-26 11:58] LABS: HEMOGLOBIN 8.4 gm/dl (12.3-15.3); RED BLOOD COUNT 2.87 M/UL (4.00-5.10); WHITE BLOOD COUNT 15.8 K/UL (4.5-11.0)
[2021-07-28 04:40] LABS: HEMOGLOBIN 8.2 gm/dl (12.3-15.3); RED BLOOD COUNT 2.81 M/UL (4.00-5.10); WHITE BLOOD COUNT 17.9 K/UL (4.5-11.0)
--- NOTE | 2021-07-29 11:42 | NUR ---
SPOKE WITH PT'S FAMILY ABOUT HER INABILITY TO SIGN CONSENT FOR PROCEDURE AT THIS TIME, VERBAL ON PHONE OBTAINED
--- NOTE | 2021-07-29 15:49 | NUR ---
PT PROCEDURE HAS BEEN POSTPONED FOR TOMORROW. NPO AFTER MIDNIGHT.
[2021-07-29 17:16] LABS: HEMOGLOBIN 9.1 gm/dl (12.3-15.3)
[2021-07-29 17:34] LABS: RED BLOOD COUNT 3.1 M/UL (4.00-5.10)
--- NOTE | 2021-07-30 00:30 | NUR ---
SPOKE WITH LABEL TACKER REGARDING PT'S CONFUSION. PT TRYING TO GET OUT OF BED CONSTANTLY WITHOUT ASSISTANCE. PT VERY CONFUSED. OBTAINED PERMISSION TO MOVE PT TO ROOM 4125 TO BE CLOSER TO RN STATION.
[2021-07-30 06:21] LABS: RED BLOOD COUNT 3.08 M/UL (4.00-5.10); WHITE BLOOD COUNT 24.3 K/UL (4.5-11.0)
[2021-07-31 08:29] LABS: HEMOGLOBIN 7.5 gm/dl (12.3-15.3)
[2021-07-31 08:31] LABS: RED BLOOD COUNT 2.57 M/UL (4.00-5.10); WHITE BLOOD COUNT 17.7 K/UL (4.5-11.0)
[2021-08-01 06:50] LABS: HEMOGLOBIN 8.3 gm/dl (12.3-15.3); RED BLOOD COUNT 2.84 M/UL (4.00-5.10); WHITE BLOOD COUNT 15.9 K/UL (4.5-11.0)
[2021-08-01] MEDS ORDERED: LOPRESSOR 25 MG25 MG PO (18:37)
[2021-08-01] MEDS ORDERED: LANTUS INS100 UTS/M1 SC (18:37)
== END 2021-08-02 02:00 | disposition home health service (06) | DRG 871 ==
LOC: ER1 16:01 → CDU 21:57 → MED SURG 4 21:57
PROVIDERS: Internal Medicine; Internal Medicine Infectious Disease; Internal Medicine Nephrology; Physician Assistant Medical; Surgery; ADMIT Internal Medicine
PROC: 3E03329 Introduction of Other Anti-infective into Peripheral Vein, Percutaneous Approach (ICD-10-PCS; 2021-07-15)
PROC: 3E1M39Z Irrigation of Peritoneal Cavity using Dialysate, Percutaneous Approach (ICD-10-PCS; 2021-07-16)
PROC: 5A1D70Z Performance of Urinary Filtration, Intermittent, Less than 6 Hours Per Day (ICD-10-PCS; 2021-07-18)
PROC: 0J9P0ZZ Drainage of Left Lower Leg Subcutaneous Tissue and Fascia, Open Approach (ICD-10-PCS; principal; 2021-07-19 16:20)
PROC: B24BZZZ Ultrasonography of Heart with Aorta (ICD-10-PCS; 2021-07-23)
PROC: 0J9P0ZZ Drainage of Left Lower Leg Subcutaneous Tissue and Fascia, Open Approach (ICD-10-PCS; 2021-07-30)
DX: A41.51 Sepsis due to Escherichia coli [E. coli] (principal); N18.6 End stage renal disease; G92.8 Other toxic encephalopathy; M72.6 Necrotizing fasciitis; Z20.822 Contact with and (suspected) exposure to COVID-19; I96 Gangrene, not elsewhere classified; I12.0 Hypertensive chronic kidney disease with stage 5 chronic kidney disease or end stage renal disease; L02.612 Cutaneous abscess of left foot; E87.2 Acidosis; E10.52 Type 1 diabetes mellitus with diabetic peripheral angiopathy with gangrene; L03.116 Cellulitis of left lower limb; E87.1 Hypo-osmolality and hyponatremia; L97.419 Non-pressure chronic ulcer of right heel and midfoot with unspecified severity; M86.672 Other chronic osteomyelitis, left ankle and foot; E10.40 Type 1 diabetes mellitus with diabetic neuropathy, unspecified; D63.1 Anemia in chronic kidney disease; E83.39 Other disorders of phosphorus metabolism; Z83.3 Family history of diabetes mellitus; E10.22 Type 1 diabetes mellitus with diabetic chronic kidney disease; B96.20 Unspecified Escherichia coli [E. coli] as the cause of diseases classified elsewhere; E10.649 Type 1 diabetes mellitus with hypoglycemia without coma; E10.621 Type 1 diabetes mellitus with foot ulcer; T40.605A Adverse effect of unspecified narcotics, initial encounter; E87.6 Hypokalemia; K59.00 Constipation, unspecified; E10.65 Type 1 diabetes mellitus with hyperglycemia; D69.6 Thrombocytopenia, unspecified; Z99.2 Dependence on renal dialysis; Z98.890 Other specified postprocedural states; Z88.1 Allergy status to other antibiotic agents; Z84.1 Family history of disorders of kidney and ureter
CPT/HCPCS: ECHO; 36415; 36600; 70450; 71045; 73630; 73700; 73701; 73718; 74018; 80048; 80053; 82140; 82803; 82962; 83036; 83605; 83735; 84100; 85007; 85025; 85027; 85652; 86140; 87040; 87070; 87077; 87186; 87205; 90935; 90945; 90947; 93306; 93926; 93971; 96374; 96375; 99284; J0696; J0780; J0878; J0885; J1100; J1170; J1200; J1335; J1610; J1644; J2001; J2020; J2270; J2405; J2543; J2704; J3010; J3370; J7030; J7120; Q4081; Q9967; U0002